=== PATIENT | male | born 1990 | race Caucasian/White ===

== ENCOUNTER 2016-11-06 23:46 | Emergency (ER) | payer OTHER ==
[2016-11-06 23:53] VITALS: BP 138/70
== END 2016-11-07 01:23 | disposition home or self-care (01) ==
LOC: ED 23:46
DX: S93.401A Sprain of unspecified ligament of right ankle, initial encounter (principal); X50.1XXA Overexertion from prolonged static or awkward postures, initial encounter; Y93.89 Activity, other specified; Y99.8 Other external cause status; Y92.89 Other specified places as the place of occurrence of the external cause